=== PATIENT | female | born 1960 | race Caucasian/White ===

== ENCOUNTER → 2017-02-18 | Outpatient (CLI) | payer OTHER ==
[~2017-02-18] MED LIST: ALEVE220 MG PO; ASPIR 8181 M1 PO; CALCIUM 600 +1 EA16 PO; DAILY VALUE1 EACH PO; FEMARA2.5 MG PO; LISINOPRIL10 MG PO; ULTRAM50 MG PO
== END | disposition home or self-care (01) ==
LOC: AMB 11:30
DX: Z45.2 Encounter for adjustment and management of vascular access device (principal); I87.8 Other specified disorders of veins; Z92.21 Personal history of antineoplastic chemotherapy

== ENCOUNTER 2017-08-03 14:18 | Observation (INO) | payer OTHER ==
[~2017-08-03] VITALS: Ht 162.6 cm; Wt 65.0 kg
[2017-08-03 15:11] LABS: MCHC 34.3 G/DL (30.0-36.0); MCV 90.4 FL (83-99); PLATELET COUNT 216 K/uL (156-360); RBC DIS.WIDTH-CV 11.9 % (11.8-14.6); RED BLOOD COUNT 3.87 M/uL (3.80-5.20); WHITE BLOOD COUNT 4.7 K/uL (4.1-10.2)
[2017-08-03 15:16] LABS: INTER. NORMALIZED RATIO 1.1
[2017-08-03 15:18] LABS: PTT 31.6 SEC (25-37)
[2017-08-03 15:21] LABS: CHLORIDE 105 mEq/L (99-109); POTASSIUM 3.9 mEq/L (3.7-5.4); SODIUM 137 mEq/L (136-147)
[2017-08-03 15:22] LABS: GLUCOSE 109 mg/dL (70-99)
[2017-08-03 15:26] LABS: CREATININE 1.1 mg/dL (0.6-1.3); GFR ESTIMATE (CALCULATED) 54 mL/min/
[2017-08-03 15:27] LABS: UREA NITROGEN (BUN) 22 mg/dL (9-23)
[2017-08-03 20:05] VITALS: BP 109/64
[2017-08-03 20:06] LABS: HEMOGLOBIN A1c (GLYCOHEMOGLOB) 5.1 % HGB (Below 5.7)
[2017-08-03 21:01] LABS: HDL CHOLESTEROL 45 MG/DL (Desirable>=50); LDL CHOLESTEROL 118 mg/dL (Desirable<100); NON-HDL CHOLESTEROL 142 mg/dL (Desirable<160); TOTAL CHOLESTEROL 187 mg/dL (Desirable<200); TRIGLYCERIDES 121 MG/DL (Normal: <150)
[2017-08-04 01:05] VITALS: BP 104/56
[2017-08-04 04:42] VITALS: BP 110/61
[2017-08-04 05:36] LABS: HEMATOCRIT 34.7 % (36.0-46.0); HEMOGLOBIN 11.9 G/DL (11.9-15.5); MCH 31.1 PG (29.0-34.0); MCHC 34.3 G/DL (30.0-36.0); MCV 90.6 FL (83-99); PLATELET COUNT 181 K/uL (156-360); RBC DIS.WIDTH-CV 11.9 % (11.8-14.6); RED BLOOD COUNT 3.83 M/uL (3.80-5.20); WHITE BLOOD COUNT 3.7 K/uL (4.1-10.2)
[2017-08-04 07:07] LABS: ALBUMIN 3.8 G/DL (3.2-4.8); ALKALINE PHOSPHATASE 60 IU/L (3-129); ALT (GPT) 14 IU/L (3-49); AST (GOT) 14 IU/L (2-34); CHLORIDE 106 MEQ/L (99-109); CREATININE 0.8 MG/DL (0.6-1.3); GFR ESTIMATE (CALCULATED) > 59 mL/min/; GLUCOSE 95 mg/dL (70-99); POTASSIUM 4.1 MEQ/L (3.7-5.4); SODIUM 140 MEQ/L (136-147); TOTAL BILIRUBIN 0.4 MG/DL (0.0-1.0); TOTAL PROTEIN 6.1 G/DL (6.4-8.3); UREA NITROGEN (BUN) 18 mg/dL (9-23)
[2017-08-04 10:16] LABS: APPEARANCE CLEAR ((CLEAR)); BILIRUBIN NEGATIVE; BLOOD NEGATIVE; COLOR STRAW ((YELLOW)); GLUCOSE (STRIP) NEGATIVE; KETONES NEGATIVE; LEUKOCYTES NEGATIVE; NITRITE NEGATIVE; PROTEIN (STRIP) NEGATIVE; SPECIFIC GRAVITY 1.009 (1.000-1.030); UCUL ADDED? NO; UROBILINOGEN 0.2 MG/DL (0.2-1.0)
[2017-08-04] MEDS ORDERED: PRAVACHOL10 MG PO (11:42)
[2017-08-04 12:19] VITALS: BP 99/64
== END 2017-08-04 13:38 | disposition home or self-care (01) ==
LOC: EME 14:18 → EDOF 17:56 → 5WEST 17:56 → ENRESERV 18:01 → 5WEST 19:51
PROVIDERS: Hospitalist
DX: G45.9 Transient cerebral ischemic attack, unspecified (principal); Z85.3 Personal history of malignant neoplasm of breast; Z92.21 Personal history of antineoplastic chemotherapy; Z92.3 Personal history of irradiation; I10 Essential (primary) hypertension; Z82.3 Family history of stroke; Z83.3 Family history of diabetes mellitus; Z88.2 Allergy status to sulfonamides
CPT/HCPCS: 70450; 71046; 80048; 80053; 80061; 81003; 83036; 85027; 85610; 85730; 93005; 93880; 99281; 99285; G0378